=== PATIENT | male | born 1955 | race African-American/Black ===

== ENCOUNTER 2017-08-17 08:35 | Emergency (ER) | payer OTHER ==
[~2017-08-17] VITALS: Ht 175.3 cm; Wt 77.3 kg
[~2017-08-17 08:35] MED LIST: AMIO200T44 PO; ASPI-556 PO; ATOR40TA28 PO; GABA-531 PO; ISOS30TA6 PO; LOSA50TA37 PO; MULT-75 PO; POTA10TA14 PO; TICA90TA PO; WARF5 PO; WARF7.5 PO
[2017-08-17] MEDS ORDERED: NIFE60TA71 PO (09:16)
[2017-08-17] MEDS ORDERED: VENL-68 PO (09:16)
[2017-08-17] MEDS ORDERED: WARF1 PO (09:16)
[2017-08-17] MEDS ORDERED: LIDO700A15 TD (09:16)
[2017-08-17] MEDS ORDERED: SALS500T16 PO (09:16)
[2017-08-17] MEDS ORDERED: PREG75 PO (09:16)
[2017-08-17] MEDS ORDERED: CARV3 PO (09:16)
[2017-08-17] MEDS ORDERED: NITR0.4T50 SL (09:16)
[2017-08-17] MEDS ORDERED: HYDR10TA31 PO (09:16)
[2017-08-17] MEDS ORDERED: DOCU250C91 PO (09:16)
[2017-08-17] MEDS ORDERED: RANI150T7 PO (09:16)
[2017-08-17] MEDS ORDERED: SODIUM CHLORIDE 0.9% 1,000 ML IV ONE (09:45)
[2017-08-17] MEDS ORDERED: LOPERAMIDE HCL 2 MG CAPSULE PO ONE (09:45)
[2017-08-17] MEDS ORDERED: ACETAMINOPHEN 500 MG TABLET PO ONE (09:45)
[2017-08-17 10:14] LABS: BASOPHILS % (AUTO) 0.4 % (0.0-2.0); EOSINOPHILS % (AUTO) 0.6 % (1.0-6.0); HEMATOCRIT 50.4 % (41-53); HEMOGLOBIN 17.1 g/dL (13.5-17.5); LYMPHOCYTES # (AUTO) 1.5 K/uL (1.0-4.8); MEAN CORPUSCULAR VOLUME 94 fL (80-100); MONOCYTES # (AUTO) 0.5 K/uL (0.1-1.0); MONOCYTES % (AUTO) 7.9 % (2.0-9.0); NEUTROPHILS # (AUTO) 4.7 K/uL (1.8-7.7); NEUTROPHILS % (AUTO) 69.1 % (40.0-70.0); PLATELET COUNT (AUTO) 416 K/uL (150-450); RED BLOOD CELL COUNT(AUTO) 5.35 MIL/uL (4.50-5.90); RED CELL DISTRIBUTION WIDTH 14.3 % (11.5-14.5)
[2017-08-17 10:22] LABS: ANION GAP 15 mmol/L (8-16); CALCIUM, TOTAL 10.6 mg/dL (8.8-10.5); CARBON DIOXIDE 25 mmol/L (22-29); CHLORIDE 100 mmol/L (98-107); CREATININE 1.39 mg/dL (0.60-1.30); GLOMERULAR FILTR. RATE CALC > 60 mL/min (>60); GLUCOSE,RANDOM 124 mg/dL (70-110); POTASSIUM 4.4 mmol/L (3.5-5.1); SODIUM SERUM 140 mmol/L (136-145); UREA NITROGEN, BLOOD 23 mg/dL (7-18)
[2017-08-17 10:23] LABS: INR 1.9 (0.9-1.1); PROTHROMBIN TIME 19.2 SEC (9.4-11.6)
[2017-08-17 10:28] LABS: ALANINE AMINOTRANSFERASE 36 U/L (12-78); ALKALINE PHOSPHATASE 127 U/L (46-116); ASPARTATE AMINOTRANSFERASE 22 U/L (15-37); BILIRUBIN,TOTAL 0.6 mg/dL (0.1-1.0); LIPASE 64 U/L (73-393); TOTAL PROTEIN, SERUM 9.3 g/dL (6.4-8.2)
[2017-08-17 11:05] LABS: ALBUMIN 4.4 g/dL (3.4-5.0)
[2017-08-17 13:20] VITALS: BP 155/74
== END 2017-08-17 13:22 | disposition home or self-care (01) ==
LOC: EMS 08:36
DX: R19.7 Diarrhea, unspecified (principal); R10.84 Generalized abdominal pain; R11.2 Nausea with vomiting, unspecified; M79.1 Myalgia; R05 Cough; I48.91 Unspecified atrial fibrillation; E78.00 Pure hypercholesterolemia, unspecified; I10 Essential (primary) hypertension; F32.9 Major depressive disorder, single episode, unspecified; F17.210 Nicotine dependence, cigarettes, uncomplicated; Z88.8 Allergy status to other drugs, medicaments and biological substances; Z79.82 Long term (current) use of aspirin; Z79.01 Long term (current) use of anticoagulants
CPT/HCPCS: 36415; 71045; 80053; 81002; 83690; 85025; 85610; 99285; J7030